=== PATIENT | male | born 1945 | race Caucasian/White ===

== ENCOUNTER → 2017-01-17 | Outpatient (CLI) | payer OTHER ==
[~2017-01-17] VITALS: Ht 180.3 cm; Wt 89.4 kg
[~2017-01-17] MED LIST: ADULT LOW DOSE81 M1 PO; ADVIL200 MG PO; COREG CR10 MG PO; LIPITOR20 MG PO; LOMOTIL TABLET1 EACH PO; PROTONIX20 MG PO; ZESTRIL10 MG PO
== END | disposition home or self-care (01) ==
LOC: AMB 12:26
DX: R19.7 Diarrhea, unspecified (principal); R63.4 Abnormal weight loss; Z86.010 Personal history of colon polyps; I10 Essential (primary) hypertension; E78.5 Hyperlipidemia, unspecified; Z79.82 Long term (current) use of aspirin
CPT/HCPCS: 88305; 93005